=== PATIENT | male | born 1995 | race African-American/Black ===

== ENCOUNTER 2021-11-21 09:21 | Emergency (ER) | payer OTHER ==
[~2021-11-21] VITALS: Ht 167.6 cm; Wt 70.3 kg
[2021-11-21 09:21] VITALS: BP 140/60
--- NOTE | 2021-11-21 09:29 | NUR ---
URINE SPECIMEN COLLECTED AND SENT TO LAB.
[2021-11-21] MEDS ORDERED: AZITHROMYCIN 250 MG TABLET ONE (09:45)
[2021-11-21] MEDS ORDERED: AZITHROMYCIN 250 MG TABLET PO ONE (10:00)
== END 2021-11-21 09:53 | disposition home or self-care (01) ==
LOC: ER 09:26
DX: R36.9 Urethral discharge, unspecified (principal); Z60.2 Problems related to living alone
CPT/HCPCS: 87491; 87591

== ENCOUNTER 2022-06-16 22:23 | Emergency (ER) | payer OTHER ==
--- NOTE | 2022-06-17 00:19 | NUR ---
CALLED FOR TRIAGE. NO ANSWER
--- NOTE | 2022-06-17 00:47 | NUR ---
CALLED FFOR TRIAGE, NO RESPONSE
== END 2022-06-17 00:48 | disposition left against medical advice (07) ==
LOC: ER 22:26
DX: Z53.21 Procedure and treatment not carried out due to patient leaving prior to being seen by health care provider (principal)

== ENCOUNTER 2023-03-16 09:00 | Emergency (ER) | payer OTHER ==
[~2023-03-16] VITALS: Ht 170.2 cm; Wt 68.5 kg
[2023-03-16 09:15] VITALS: BP 125/81; TEMP 98
[2023-03-16] MEDS ORDERED: ERYT3.5O9 LEFTEYE (09:24)
[2023-03-16 09:33] VITALS: O2SAT 97
== END 2023-03-16 09:47 | disposition home or self-care (01) ==
LOC: ER 09:10
DX: H00.015 Hordeolum externum left lower eyelid (principal); Z60.2 Problems related to living alone

== ENCOUNTER 2023-12-13 17:58 | Emergency (ER) | payer OTHER ==
[~2023-12-13] VITALS: Ht 170.2 cm; Wt 71.7 kg
[~2023-12-13 17:58] MED LIST: ERYT3.5O9 LEFTEYE
[2023-12-13 19:25] LABS: BASOPHILS % (AUTO) 0.2 % (0.0-2.0); EOSINOPHILS # (AUTO) 0.1 K/uL (0.0-0.7); EOSINOPHILS % (AUTO) 1.4 % (0.0-6.0); HEMATOCRIT 45 % (39-51); HEMOGLOBIN 15.3 g/dL (13.5-17.5); LYMPHOCYTES # (AUTO) 2.9 K/uL (0.8-4.8); LYMPHOCYTES % (AUTO) 36.4 % (20.0-44.0); MEAN CORPUSCULAR HEMOGLOBIN 29 PG (26.0-33.0); MEAN CORPUSCULAR HGB CONC 34 g/dl (31.0-36.0); MEAN CORPUSCULAR VOLUME 85 fL (80-96); MONOCYTES # (AUTO) 0.9 K/uL (0.1-1.30); MONOCYTES % (AUTO) 11.6 % (2.0-12.0); NEUTROPHILS % (AUTO) 50.4 % (43.0-81.0); PLATELET COUNT (AUTO) 256 K/uL (150-450); RED BLOOD CELL COUNT(AUTO) 5.31 MIL/uL (4.5-6.0); RED CELL DISTRIBUTION WIDTH 13.9 % (11.5-15.0); WHITE BLOOD COUNT (AUTO) 7.9 K/uL (4.3-11.0)
[2023-12-13 19:31] LABS: CALCIUM, SERUM 9.4 mg/dL (8.5-10.1); CREATININE 1.1 mg/dL (0.6-1.3); POTASSIUM 3.6 mmol/L (3.5-5.1)
[2023-12-13] MEDS ORDERED: LOPE2CAP40 PO (19:55)
[2023-12-13] MEDS ORDERED: CIPR500T5 PO (19:55)
[2023-12-13 20:06] VITALS: BP 128/69; TEMP 98.5; O2SAT 98
== END 2023-12-13 20:06 | disposition home or self-care (01) ==
LOC: ER 17:59
DX: R19.7 Diarrhea, unspecified (principal); Z60.2 Problems related to living alone
CPT/HCPCS: 36415; 80048-TC; 85025-TC

== ENCOUNTER 2025-02-21 10:49 | Emergency (ER) | payer OTHER ==
[~2025-02-21] VITALS: Ht 170.2 cm; Wt 68.0 kg
[~2025-02-21 10:49] MED LIST changes: +CIPR500T5 PO; +LOPE2CAP40 PO
[2025-02-21 10:59] VITALS: TEMP 98.2
[2025-02-21] MEDS ORDERED: KETOROLAC TROMETHAMINE 15 MG/ML VIAL ONE (11:12)
[2025-02-21] MEDS: IV NS 0.9% 1,000 ML BAG IV ONE (11:22)
[2025-02-21] MEDS: KETOROLAC TROMETHAMINE 15 MG/ML VIAL IV ONE (11:23)
[2025-02-21 11:38] LABS: PLATELET COUNT (AUTO) 200 K/uL (150-450); RED BLOOD CELL COUNT(AUTO) 5.27 MIL/uL (4.5-6.0); RED CELL DISTRIBUTION WIDTH 14.0 % (11.5-15.0); WHITE BLOOD COUNT (AUTO) 7.3 K/uL (4.3-11.0)
[2025-02-21 11:47] LABS: CALCIUM, SERUM 8.9 mg/dL (8.5-10.1); CREATININE 1.2 mg/dL (0.6-1.3); SODIUM SERUM 142.0 mmol/L (136-145); UREA NITROGEN, BLOOD 17.0 mg/dL (7-18)
[2025-02-21 11:53] LABS: ASPARTATE AMINOTRANSFERASE 18.0 U/L (15-37); TOTAL PROTEIN, SERUM 7.4 g/dL (6.4-8.2)
[2025-02-21] MEDS ORDERED: NAPR-1164 PO (11:57)
[2025-02-21 12:45] VITALS: BP 121/60; O2SAT 97
== END 2025-02-21 12:43 | disposition home or self-care (01) ==
LOC: ER 10:51
DX: R10.32 Left lower quadrant pain (principal); K63.89 Other specified diseases of intestine
CPT/HCPCS: 99285; 74176; 96374; 96361; 85025; 80048; 83690; 80076; 36415; J1885; J7030